=== PATIENT | female | born 1960 | race Hispanic/Latino ===

== ENCOUNTER → 2019-07-27 | Outpatient (CLI) | payer BC | LOC: MAMMO 08:21 | PROVIDERS: ATTEND Internal Medicine | DX: Z12.31 Encounter for screening mammogram for malignant neoplasm of breast (principal) | CPT/HCPCS: 77067 ==

== ENCOUNTER → 2019-09-29 | Outpatient (CLI) | payer BC ==
--- NOTE | 2019-10-03 12:57 | Diagnostic Imaging Report ---
#[id number] - MGDXRT #UNILATERAL RIGHT DIGITAL DIAGNOSTIC MAMMOGRAM WITH SPOT COMPRESSION: 09/29/2019 Comparison is made to exam dated: 07/27/2019 mammogram - [facility] [place]. There are scattered fibroglandular elements in the right breast. There is a 6 mm oval mass in the right breast at 1 o'clock middle depth. No other significant masses or calcifications are seen in the breast. IMPRESSION: INCOMPLETE: NEEDS ADDITIONAL IMAGING EVALUATION The 6 mm oval mass in the right breast is indeterminate. An ultrasound is recommended and will be performed during the same visit. Follow-up with ACR/ACS guidelines. AMOS BAILEY M.D. kw/:09/30/2019 15:43:08 Wing Coverer: Selene SERRANO)(M), [facility] [place] Mammogram BI-RADS: 0 Indeterminate
--- NOTE | 2019-10-03 12:57 | Diagnostic Imaging Report ---
#[id number] - USBRELIMRT ULTRASOUND OF THE RIGHT BREAST : 09/29/2019 Comparison is made to exam dated: 07/27/2019 mammogram - [facility]. Color flow and real-time ultrasound were performed on the right breast. Ramos scale images of the real-time examination were reviewed. There is a benign 4 mm oval cyst with a smooth internal wall in the right breast at 2 o'clock middle depth. This oval cyst is anechoic. IMPRESSION: BENIGN There is no sonographic evidence of malignancy. The 4 mm oval cyst in the right breast likely represents a simple cyst and is benign. A 1 year screening mammogram is recommended. AMOS orantes/kirk:09/30/2019 15:44:41 Bottle Filler: ABIGAIL KENT [facility], [facility] letter sent: Compared to Prior B9 Ultrasound BI-RADS: 2 Benign
== END ==
LOC: MAMMO 09:42
PROVIDERS: ATTEND Internal Medicine
DX: N63.10 Unspecified lump in the right breast, unspecified quadrant (principal)